=== PATIENT | female | born 1930 | race Caucasian/White ===

== ENCOUNTER 2017-05-02 11:38 | Emergency (ER) | payer OTHER ==
[~2017-05-02] VITALS: Ht 149.9 cm; Wt 98.1 kg
[~2017-05-02 11:38] MED LIST: ALENDRONATE SOD70 M2 PO; AMLODIPINE BES2.5 M1 PO; ASPIR 8181 MG PO; CARVEDILOL3.125 M1 PO; CELEBREX200 MG PO; CEPHALEXIN500 MG PO; DICLOFENAC SODI75 MG PO; FAMOTIDINE20 MG PO; HUMI; KLOR-CON M1010 MEQ PO; LAC PO; LOSARTAN POTAS100 M1 PO; MONTELUKAST SOD10 M1 PO; NITROSTAT0.4 MG SL; PAXIL10 MG PO; SIMVASTATIN20 M1 PO
[2017-05-02 12:06] VITALS: Ht 149.9 cm; Wt 98.1 kg
[2017-05-02 14:25] VITALS: BP 136/98
== END 2017-05-02 14:25 | disposition home or self-care (01) ==
LOC: ED 11:38
DX: N39.0 Urinary tract infection, site not specified (principal); R51 Headache; M54.2 Cervicalgia; I10 Essential (primary) hypertension; E11.9 Type 2 diabetes mellitus without complications

== ENCOUNTER 2018-01-31 15:43 | Emergency (ER) | payer OTHER ==
[~2018-01-31] VITALS: Ht 154.9 cm; Wt 93.9 kg
[2018-01-31 15:58] VITALS: Ht 154.9 cm; Wt 93.9 kg
[2018-01-31 17:03] LABS: BASOPHIL % 0.4 % (0-2); PLATELET COUNT 276 x10^3mcL (130-400); RED CELL DISTRIBUTION WIDTH 14.2 % (11.5-14.5)
[2018-01-31 17:07] LABS: CALCIUM 8.7 mg/dL (8.5-10.1); CARBON DIOXIDE 26.9 mmol/L (21-32); CHLORIDE SERUM 102 mmol/L (98-107); CREATININE SERUM 0.8 mg/dL (0.6-1.0); GLUCOSE SERUM 84 mg/dL (74-106); POTASSIUM SERUM 3.6 mmol/L (3.5-5.1); SODIUM SERUM 137 mmol/L (136-145)
[2018-01-31 17:11] LABS: ALKALINE PHOSPHATASE 95 U/L (46-116); ALT/SGPT 14 U/L (14-59); AST/SGOT 17 U/L (15-37); BILIRUBIN TOTAL 0.3 mg/dL (0.20-1.00); TOTAL PROTEIN, SERUM 7.4 g/dL (6.4-8.2)
[2018-01-31 17:12] LABS: ALBUMIN 3.2 g/dL (3.4-5.0)
[2018-01-31 17:20] LABS: UA SPECIFIC GRAVITY 1.015 (1.005-1.035); microscopic required? YES; urine erythrocyte NEGATIVE (NEGATIVE)
[2018-01-31 18:45] VITALS: BP 145/85
== END 2018-01-31 18:45 | disposition home or self-care (01) ==
LOC: ED 15:43
PROVIDERS: Emergency Medicine
DX: R53.1 Weakness (principal); I10 Essential (primary) hypertension; E11.9 Type 2 diabetes mellitus without complications
CPT/HCPCS: 82962; J7030; Q0092

== ENCOUNTER 2018-02-01 13:38 | Emergency (ER) | payer OTHER ==
[2018-02-01 13:54] VITALS: Ht 154.9 cm
[2018-02-01 15:52] LABS: BASOPHIL % 0.7 % (0-2); PLATELET COUNT 258 x10^3mcL (130-400)
[2018-02-01 15:59] LABS: CHLORIDE SERUM 102 mmol/L (98-107); CREATININE SERUM 0.8 mg/dL (0.6-1.0); POTASSIUM SERUM 3.6 mmol/L (3.5-5.1)
[2018-02-01 16:16] LABS: CALCIUM 8.5 mg/dL (8.5-10.1); CARBON DIOXIDE 24.5 mmol/L (21-32); GLUCOSE SERUM 82 mg/dL (74-106); SODIUM SERUM 136 mmol/L (136-145)
[2018-02-01 17:16] VITALS: BP 163/71
== END 2018-02-01 17:16 | disposition home or self-care (01) ==
LOC: ED 13:38
PROVIDERS: Emergency Medicine
DX: R78.81 Bacteremia (principal); R10.32 Left lower quadrant pain; I10 Essential (primary) hypertension; E11.9 Type 2 diabetes mellitus without complications; F03.90 Unspecified dementia, unspecified severity, without behavioral disturbance, psychotic disturbance, mood disturbance, and anxiety; F32.9 Major depressive disorder, single episode, unspecified; M19.90 Unspecified osteoarthritis, unspecified site
CPT/HCPCS: 36415; 82962; J0295

== ENCOUNTER 2018-03-18 21:05 | Emergency (ER) | payer OTHER ==
[~2018-03-18] VITALS: Ht 157.5 cm; Wt 94.1 kg
[2018-03-18 21:13] VITALS: Ht 157.5 cm; Wt 94.1 kg
[2018-03-18 21:57] LABS: BASOPHIL % 0.5 % (0-2); PLATELET COUNT 246 x10^3mcL (130-400); RED CELL DISTRIBUTION WIDTH 14.1 % (11.5-14.5)
[2018-03-18 21:59] LABS: CALCIUM 8.6 mg/dL (8.5-10.1); CHLORIDE SERUM 101 mmol/L (98-107); CREATININE SERUM 0.9 mg/dL (0.6-1.0); GLUCOSE SERUM 102 mg/dL (74-106); POTASSIUM SERUM 3.9 mmol/L (3.5-5.1); SODIUM SERUM 135 mmol/L (136-145)
[2018-03-18 22:02] LABS: ALKALINE PHOSPHATASE 92 U/L (46-116); ALT/SGPT 18 U/L (14-59); AST/SGOT 20 U/L (15-37); BILIRUBIN TOTAL 0.2 mg/dL (0.20-1.00); LIPASE 200 IU/L (73-393); MAGNESIUM 2.1 mg/dL (1.8-2.4); TOTAL PROTEIN, SERUM 7.4 g/dL (6.4-8.2)
[2018-03-18 22:04] LABS: ALBUMIN 3.3 g/dL (3.4-5.0)
[2018-03-18 22:10] LABS: microscopic required? YES; urine erythrocyte NEGATIVE (NEGATIVE)
[2018-03-18 22:31] LABS: CK-MB 1.8 ng/mL (0-3.6)
[2018-03-19 00:51] VITALS: BP 141/64
== END 2018-03-19 00:51 | disposition home or self-care (01) ==
LOC: ED 21:05
PROVIDERS: Emergency Medicine
DX: R42 Dizziness and giddiness (principal); R11.10 Vomiting, unspecified; I10 Essential (primary) hypertension; E11.9 Type 2 diabetes mellitus without complications; F32.9 Major depressive disorder, single episode, unspecified; M19.90 Unspecified osteoarthritis, unspecified site
CPT/HCPCS: 83880; J2405; J7030; J8597; Q0092

== ENCOUNTER 2018-05-16 15:34 | Inpatient (IN) | payer OTHER ==
[~2018-05-16] VITALS: Ht 157.5 cm; Wt 90.9 kg
--- NOTE | 2018-05-16 16:50 | NUR ---
PT PRESENTED TO ED FOR COUGH X 2 WEEKS, NAUSEA AND DIARRHEA X 1 DAY, AND GENERALIZED WEAKNESS X 4 DAYS. PT STATES CHEST WALL PAIN WHEN COUGHING. PT DENIES ANY FALLS. PT IN NAD. BREATHING EVEN AND UNLABORED. A&OX4. FAMILY AT BEDSIDE. WILL CONTINUE TO MONITOR
--- NOTE | 2018-05-16 16:51 | NUR ---
LAB AT BEDSIDE
[2018-05-16 17:09] LABS: BASOPHIL % 0.3 % (0-2)
[2018-05-16 17:11] LABS: PLATELET COUNT 559 x10^3mcL (130-400); RED CELL DISTRIBUTION WIDTH 15.4 % (11.5-14.5)
[2018-05-16 17:22] LABS: CALCIUM 8.9 mg/dL (8.5-10.1); CARBON DIOXIDE 29.3 mmol/L (21-32); CHLORIDE SERUM 101 mmol/L (98-107); CREATININE SERUM 0.8 mg/dL (0.6-1.0); GLUCOSE SERUM 143 mg/dL (74-106); POTASSIUM SERUM 4.6 mmol/L (3.5-5.1); SODIUM SERUM 137 mmol/L (136-145)
[2018-05-16 17:24] LABS: ALBUMIN 2.5 g/dL (3.4-5.0); ALKALINE PHOSPHATASE 115 U/L (46-116); ALT/SGPT 20 U/L (14-59); AMYLASE 45 U/L (25-115); AST/SGOT 22 U/L (15-37); BILIRUBIN TOTAL 0.11 mg/dL (0.20-1.00); LIPASE 109 IU/L (73-393); MAGNESIUM 2.2 mg/dL (1.8-2.4); TOTAL PROTEIN, SERUM 6.8 g/dL (6.4-8.2)
--- NOTE | 2018-05-16 17:40 | NUR ---
PT OBSERVED LAYING ON GURNEY IN POSITION OF COMFORT. PT IS A&OX4. PT IN NAD. BREATHING EVEN AND UNLABORED. FAMILY AT BEDSIDE. WILL CONTINUE TO MONITOR.
--- NOTE | 2018-05-16 18:25 | NUR ---
WALKED IN ON PATIENT EATING ALMOND REINALDO CANDY. ADVISED PATIENT HER BS WAS ALREADY HIGH AND INSTRUCTED HER NOT TO EAT ANYTHING ELSE UNTIL MD EVALUATES ALL TEST RESULTS.
[2018-05-16 18:35] LABS: microscopic required? NO
[2018-05-16 18:55] LABS: urine erythrocyte NEGATIVE (NEGATIVE)
--- NOTE | 2018-05-16 19:26 | NUR ---
PT AAOX3, VSS, SPEAKS IN FULL CLEAR SENTENCES, BREATHING EASY AND UNLABORED. DENIES PAIN AT THIS TIME. RESTING COMFORTABLY IN BED. DAUGHTER AT BEDSIDE. NO OBVIOUS SIGNS OF DISTRESS AT THIS TIME.
--- NOTE | 2018-05-16 19:26 | NUR ---
REPORT RECEIVED FROM PIO MENDEZ. PT'S CARE ASSUMED AT THIS TIME.
--- NOTE | 2018-05-16 20:16 | NUR ---
REPORT CALLED TO APOLLO MENDEZ. OPPORTUNITY GIVEN TO ASK QUESTIONS. PT BEING TRANSPORTED TO FLOOR BY RN AND EMT. PT'S CARE COMPLETED BY THIS RN AT THIS TIME.
--- NOTE | 2018-05-16 20:30 | NUR ---
RECEIVED PT FROM ED VIA ERJOVANY, CAME IN DUE TO COUGH. AAOX2 (PERSON AND PLACE), FORGETFUL, ABLE TO FOLLOW SIMPLE COMMANDS. NO SOB NOTED. LUNG SOUNDS DIMINISHED ON AUSCULTATION, O2 SAT=94%, RA. NSR ON THE MONITOR. DENIES CHEST PAIN/PRESSURE. DENIES ABDOMINAL DISCOMFORT. VOIDS. IV SITE ON THE RAC IS PATENT AND INTACT. W/ ECCHYMOSIS ON LEFT HAND AND PURPLISH DISCOLORATION ON RLE. RECEIVED PT FROM ED W/ ZITHROMAX ONGOING. DAUGHTER AT BEDSIDE. SIDE RAILS UPX2. CALL LIGHT ON REACH. HOB ELEVATED AT 45 DEG. PRIMARY NURSE APOLLO AT BEDSIDE FOR CONTINUITY OF CARE
[2018-05-16 20:46] VITALS: BP 157/83
[2018-05-16 20:48] VITALS: Ht 157.5 cm; Wt 90.9 kg
--- NOTE | 2018-05-16 21:10 | NUR ---
RANDOM BS CHECKED @ 92 MG/DL.SNACKS GIVEN AT THIS TIME. ENTERED ADMISSION ORDERS.WILL CARRY OUT.
[2018-05-16 22:00] VITALS: BP 157/83
--- NOTE | 2018-05-17 04:35 | NUR ---
PT SLEPT WITH INTERVALS.BREATHING EASY AND NON-LABORED WITH OCCASIONAL COUGHING.NO SOB/CONGESTION NOTED.NO ASE NOTED FROM ZOSYN IV ATB.AMBULATED TO BR WIITH ASSIST.BEDALARM ON AT ALL TIMES.ALL NEEDS MET.WILL CONTINUE TO MONITOR.
[2018-05-17 06:24] LABS: BASOPHIL % 0.3 % (0-2)
[2018-05-17 06:25] VITALS: BP 157/64
[2018-05-17 06:25] LABS: CALCIUM 8.9 mg/dL (8.5-10.1); CHLORIDE SERUM 102 mmol/L (98-107); CREATININE SERUM 0.8 mg/dL (0.6-1.0); GLUCOSE SERUM 133 mg/dL (74-106); POTASSIUM SERUM 4.3 mmol/L (3.5-5.1); SODIUM SERUM 138 mmol/L (136-145)
[2018-05-17 08:08] LABS: PLATELET COUNT 527 x10^3mcL (130-400); RED CELL DISTRIBUTION WIDTH 15.4 % (11.5-14.5)
--- NOTE | 2018-05-17 09:25 | NUR ---
PASSED MORNING MEDICATIONS, PT TOLERATED WELL. EFFORTLESS BREATHING ON ROOM AIR. DENIES SOB, CHEST PAIN. PT HAS PRODUCTIVE COUGH WITH ABILITY TO EXPECTORATE. PT IS AMBULATORY REPORTS USES WALKER AT HOME. IV PRESENT TO RAC#20, LFA#22. BED IN LOWEST POSITION, CALL LIGHT WITHIN REACH. FAMILY AT BEDSIDE.
[2018-05-17 09:36] VITALS: BP 127/66
--- NOTE | 2018-05-17 12:11 | NUR ---
PT SITTING AT BEDSIDE CHAIR. DENIES DISCOMFORT AT MOMENT. EFFORTLESS BREATHING ON ROOM AIR. CALL LIGHT WITHIN REACH.
[2018-05-17 13:13] VITALS: BP 128/62
--- NOTE | 2018-05-17 15:30 | NUR ---
PT AMBULATED IN HALLWAYS. STEADY GAIT. NO DISTRESS NOTED.
[2018-05-17 16:33] VITALS: BP 157/54
--- NOTE | 2018-05-17 17:27 | NUR ---
PASSED AFTERNOON MEDICATIONS, PT TOLERATED WELL. EFFORTLESS BREATHING ON ROOM AIR, O2SAT:94% IV PATENT TO LFA#22 INFUSING WELL. PT TOLERATED PHYSICAL THERAPY SESSION WELL, TOLERATED ACTIVITY WELL. PT SITTING AT BEDSIDE CHAIR, CALL LIGHT WITHIN REACH. DAUGHTER AT BEDSIDE.
--- NOTE | 2018-05-17 17:46 | NUR ---
PT SITTING AT BEDSIDE CHAIR. DENIES HEADACHE. DAUGHTER AT BEDSIDE.
--- NOTE | 2018-05-17 18:36 | NUR ---
P.T. NOTES P.T. EVAL COMPLETED; NURSING TO AMBU PATIENT AD EVERARDO; O2 SAT ROOM AIR= 94% W/ EXERTION; RN AWARE.
--- NOTE | 2018-05-17 20:00 | NUR ---
PT IS AWAKE AND ORIENTED X4. PT DENIES [place] OR DIZZINESS AT THIS TIME. PT IS CALM AND COOPERATIVE WITH NURSING CARE. PT IS LUX[place] SPEAKING BUT ABLE TO LET NEEDS BE KNOWN. PT ON TELE#25 SHOWING NSE ON THE MONITOR. PT HAS PALPABLE PULSES BILAT ALL EXTREMTIES. NO SIGNS OF EDEMA. PT HAS DIM BASES. RESPIRATIONS EVEN AND UNLABORED ON ROOM IAR. PT DENIES SOB. PT HAS ACTIVE BOWEL SOUNDS. PT ABD ROUND, SOFT, AND NONTENDER. PT DENIES ABD PAIN AND N/V AT THIS TIME. PT VOIDS FREELY ON OWN. PT AMBULATORY WITH STEADY GAIT. PT HAS DISCOLORATION TO BUE. IV NOTED TO LFA NAD RAC. PT DENIES PAIN OR DISCOMFORT. ALL PT NEEDS MET. NO SIGNS OF DISTRESS. WILL CONTINUE TO MONITOR.
[2018-05-17 21:13] VITALS: BP 152/65
--- NOTE | 2018-05-17 22:39 | NUR ---
PT IV INFILTRATED TO LFA. WARM COMPRESS APPLIED AND LUE KEPT ELEVATED. WILL INSERT NEW IV. WILL CONTINUE TO MONITOR.
--- NOTE | 2018-05-18 01:40 | NUR ---
PT REMAINS SITTING UP IN CHAIR AT BEDSIDE AT THIS TIME. NO SIGNS OF PAIN OR DISCOMFORT. WILL CONTINUE TO MONITOR.
--- NOTE | 2018-05-18 03:05 | NUR ---
PT REMAINS IN BED AT THIS TIME RESTING WITH EYES CLOSED. NO SIGNS OF DISTRESS. WILL CONTINUE TO MONITOR.
[2018-05-18 05:39] VITALS: BP 136/50
--- NOTE | 2018-05-18 05:59 | NUR ---
PT IS CALM AND COOPERATIEV WITH NURSING CARE. PT IS CROATIAN SPEAKING BUT ABLE TO LET NEEDS BE KNOWN. PT HAS NEW IV TO RFA AND REMAINS PATENT AND HEPLOCKED. PT SLEPT ON AND OFF THROUGHOUT THE EVENING. ALL PT NEEDS MET. NO SIGNS OF DISTRESS. WILL ENDORSE TO DAY NURSE.
--- NOTE | 2018-05-18 07:14 | NUR ---
RECEIVED PATIENT RESTING COMFORTABLY IN BED. IV TO RFA IS PATENT AND INTACT. NO REDNESS OR PAIN. TELE # [address] NO C/O CHEST PAIN. PT ON ROOM AIR. NO C/O SOB AND NO DISTRESS NOTED. ALL QUESTIONS AND CONCERNS ADDRESSED.
[2018-05-18 09:49] VITALS: BP 148/62
[2018-05-18 12:20] VITALS: BP 140/62
[2018-05-18 13:10] VITALS: BP 140/62
--- NOTE | 2018-05-18 14:45 | NUR ---
PT STABLE FOR DISCHARGE PER MD. DISCHARGE INSTRUCTIONS AND SUMMARY DISCUSSED WITH PATIENT AND DAUGHTER. BOTH VERBALIZED UNDERSTANDING AND AGREE TO FOLLOW UP WIHT PCP IN 2-3 DAYS. IV REMOVED AND IV POLE CLERED. TELE # 25 REMOVED. MONITOR NOTIFIED. ID BANDS CUT. PT ESCORTED TO LOBBY VIA WHEELCHAIR.
== END 2018-05-18 14:48 | disposition home or self-care (01) | DRG 177 ==
LOC: ED 15:34 → DU 19:43 → EDBEDREQ 19:45 → DU 20:20
PROVIDERS: Emergency Medicine; ADMIT Internal Medicine
DX: J69.0 Pneumonitis due to inhalation of food and vomit (principal); J96.01 Acute respiratory failure with hypoxia; J44.1 Chronic obstructive pulmonary disease with (acute) exacerbation; E86.0 Dehydration; E11.65 Type 2 diabetes mellitus with hyperglycemia; J45.909 Unspecified asthma, uncomplicated; I11.9 Hypertensive heart disease without heart failure; E11.42 Type 2 diabetes mellitus with diabetic polyneuropathy; I25.10 Atherosclerotic heart disease of native coronary artery without angina pectoris; M81.0 Age-related osteoporosis without current pathological fracture; F03.90 Unspecified dementia, unspecified severity, without behavioral disturbance, psychotic disturbance, mood disturbance, and anxiety; F32.9 Major depressive disorder, single episode, unspecified; E66.9 Obesity, unspecified; Z68.36 Body mass index [BMI] 36.0-36.9, adult
CPT/HCPCS: 82962; 87804; 94150; J0456; J0696; J1885; J2405; J2543; J2765; J7030; J7050; J7620; Q0092